=== PATIENT | female | born 1940 | race Caucasian/White ===

== ENCOUNTER 2017-05-11 07:36 | Emergency (ER) | payer MEDICARE ==
[~2017-05-11] VITALS: Ht 167.6 cm; Wt 87.0 kg
[~2017-05-11 07:36] MED LIST: ASPI325T PO; HYDR12.56 PO; IRBE150T49 PO; LEVO50TA51 PO; NITR0.4S SL; PROT40TA PO; [UNRECOGNIZED DRUG - OTHER]
[2017-05-11 07:40] VITALS: BP 170/84; PULSE 106; RESP 18; TEMP 98.9; O2SAT 95
[2017-05-11] MEDS ORDERED: ONDANSETRON HCL 4 MG/2 ML VIAL IV PUSH ONE (08:00)
[2017-05-11] MEDS ORDERED: SODIUM CHLORID 0.9% 500 ML INJ 500 ML IV ONE (08:00)
[2017-05-11] MEDS ORDERED: MORPHINE SULFATE 4 MG/ML INJ IV PUSH ONE (08:00)
[2017-05-11] MEDS ORDERED: LEVO88TA2 PO (08:03)
[2017-05-11] MEDS ORDERED: IRBE300T11 PO (08:03)
[2017-05-11] MEDS ORDERED: AZAT50 PO (08:03)
--- NOTE | 2017-05-11 08:25 | RADRPT ---
EXAM DATE/TIME: 05/11/2017 08:04 [facility] COMPARISON: CHEST SINGLE AP, January 20, 2014, 7:51. INDICATIONS : Chest pain, nausea, vomiting MEDICAL HISTORY : Myocardial infarction. SURGICAL HISTORY : None. ENCOUNTER: Initial ACUITY: 1 week PAIN SCORE: 6/10 LOCATION: Bilateral chest FINDINGS: The heart is normal in size. The lungs demonstrate diffuse, nonspecific interstitial infiltrate predo minantly in the lung bases. No areas of consolidation are seen. No pleural effusion is present. No fo bambi mass is seen. The osseous structures demonstrate degenerative changes in the a.c. joints and thoracic spine but are otherwise intact. CONCLUSION: 1. Diffuse bibasilar interstitial prominence new from previous of 01/20/14. This is nonspecific in danny earance. No areas of consolidation are identified. Glenn Berger MD on May 11, 2017 at 8:22 Board Certified Radiologist. This report was verified electronically.
[2017-05-11 08:28] LABS: BASOPHIL # 0.3 TH/MM3 (0-0.2); BASOPHIL % 2.9 % (0.0-2.0); EOSINOPHIL # 0.1 TH/MM3 (0-0.4); EOSINOPHIL % 1.1 % (0.0-4.0); LYMPH % 5.9 % (9.0-44.0); LYMPHOCYTE # 0.6 TH/MM3 (1.0-4.8); MEAN CELL VOLUME 91.9 FL (80.0-100.0); MEAN CORPUSCULAR HEMOGLOBIN 30.8 PG (27.0-34.0); MEAN CORPUSCULAR HGB CONC 33.6 % (32.0-36.0); MONO % 7.1 % (0.0-8.0); PLATELET COUNT 175 TH/MM3 (150-450); RED BLOOD COUNT 4.57 MIL/MM3 (4.00-5.30); RED CELL DISTRIBUTION WIDTH 12.3 % (11.6-17.2); WHITE BLOOD COUNT 9.7 TH/MM3 (4.0-11.0)
[2017-05-11 08:35] LABS: CHLORIDE 105 MEQ/L (98-107); POTASSIUM 3.9 MEQ/L (3.5-5.1); SODIUM (NA) 136 MEQ/L (136-145)
[2017-05-11 08:39] LABS: ANION GAP 8 MEQ/L (5-15); BICARBONATE 22.8 MEQ/L (21.0-32.0); BLOOD UREA NITROGEN 17 MG/DL (7-18)
[2017-05-11 08:42] LABS: ALT (GPT) 33 U/L (10-53); AST (GOT) 28 U/L (15-37); GLOMERULAR FILTRATION RATE 59 ML/MIN (>89)
[2017-05-11 08:44] VITALS: BP 146/65; PULSE 90; RESP 18; O2SAT 95
[2017-05-11 08:44] LABS: TOTAL BILIRUBIN ADULT 0.7 MG/DL (0.2-1.0)
[2017-05-11 08:45] LABS: ALKALINE PHOSPHATASE 137 U/L (45-117)
[2017-05-11 08:49] LABS: HEMO FLAGS DIFF FINAL
[2017-05-11 09:19] LABS: CREATINE KINASE 47 U/L (26-192)
[2017-05-11 09:24] VITALS: BP 146/65; PULSE 86; RESP 18; O2SAT 97
--- NOTE | 2017-05-11 10:12 | PD ---
HPI Chief Complaint: Pain: Acute or Chronic Time Seen by Provider: 07:45 Travel History International Travel<30 days: No Contact w/Intl Traveler<30days: No Traveled to known affect area: No History of Present Illness HPI Patient is a 76 year old female, with history of vasculitis, who comes in complaining of pain with nausea. She says her medication was switched 3 weeks ago, and she thinks it makes her nauseous. She has not vomited. She says she has pains to her legs, but these are chronic. She also says she has pain to her lower abdomen, which is new. She says she has not vomited. She denies fever or chills. She follows with a quality assurance director. She denies any chest pain. She says she has chronic SOB due to COPD and this has not changed. PFSH Past Medical History Arthritis: No Asthma: No Autoimmune Disease: No Blood Disorders: No Anxiety: No Depression: No Heart Rhythm Problems: No Cancer: No Cardiac Catheterization: Yes Cardiovascular Problems: Yes High Cholesterol: Yes Chemotherapy: No Chest Pain: Yes Congestive Heart Failure: No COPD: No Cerebrovascular Accident: No Coronary Artery Disease: Yes Diabetes: No Diminished Hearing: No Endocrine: Yes Gastrointestinal Disorders: Yes GERD: Yes Glaucoma: No Genitourinary: Yes Headaches: No Hepatitis: No Hiatal Hernia: No Hypertension: Yes Immune Disorder: No Kidney Stones: No Musculoskeletal: No Neurologic: Yes Psychiatric: No Reproductive: No Respiratory: No Migraines: No Myocardial Infarction: Yes (APR 21, 2010) Radiation Therapy: No Renal Failure: No Seizures: No Sickle Cell Disease: No Sleep Apnea: Yes (NO CPAP USED. ) Thyroid Disease: Yes Ulcer: No Influenza Vaccination: Yes ?: Not Menopausal: Yes Past Surgical History Abdominal Surgery: Yes AICD: No Appendectomy: No Arteriovenous Shunt: No Cardiac Surgery: No Cholecystectomy: Yes Coronary Stent: Yes (X2) Ear Surgery: No Endocrine Surgery: No Eye Surgery: No Genitourinary Surgery: No Gynecologic Surgery: No Insulin Pump: No Joint Replacement: No Oral Surgery: No Pacemaker: No Thoracic Surgery: No Tonsillectomy: Yes Other Surgery: Yes (gallbladder and tonsils removed) Social History Alcohol Use: No Tobacco Use: No Substance Use: No Allergies-Medications (Allergen,Severity, Reaction): Coded Allergies: atorvastatin (Unverified Allergy, Severe, Hives, 05/11/17) oyster extract (Unverified Allergy, Severe, VOMITING, 05/11/17) lovastatin (Unverified Allergy, Intermediate, ELEVATES LIVER ENZYMES, 05/11) acebutolol (Unverified Allergy, Unknown, unknown , 05/11/17) per pt had problems with beta blockers, doesnt know what kind atenolol (Unverified Allergy, Unknown, unknown , 05/11/17) per pt had problems with beta blockers, doesnt know what kind betaxolol (Unverified Allergy, Unknown, unknown , 05/11/17) per pt had problems with beta blockers, doesnt know what kind carvedilol (Unverified Allergy, Unknown, unknown , 05/11/17) per pt had problems with beta blockers, doesnt know what kind labetalol (Unverified Allergy, Unknown, unknown , 05/11/17) per pt had problems with beta blockers, doesnt know what kind metoprolol (Unverified Allergy, Unknown, unknown , 05/11/17) per pt had problems with beta blockers, doesnt know what kind nebivolol (Unverified Allergy, Unknown, unknown , 03/19/17) per pt had problems with beta blockers, doesnt know what kind pindolol (Unverified Allergy, Unknown, unknown , 05/11/17) per pt had problems with beta blockers, doesnt know what kind propranolol (Unverified Allergy, Unknown, unknown , 05/11/17) per pt had problems with beta blockers, doesnt know what kind sotalol (Unverified Allergy, Unknown, unknown , 05/11/17) per pt had problems with beta blockers, doesnt know what kind timolol (Unverified Allergy, Unknown, unknown , 05/11/17) per pt had problems with beta blockers, doesnt know what kind Reported Meds & Prescriptions Reported Meds & Active Scripts Active Reported Levothyroxine (Levothyroxine Sodium) 88 Mcg Tab 88 Mcg PO DAILY Azathioprine 50 Mg Tab 50 Mg PO DAILY Hazardous agent use appropriate precautions for handling and disposal. Irbesartan 300 Mg Tab 300 Mg PO DAILY Review of Systems Except as stated in HPI: all other systems reviewed are Neg General / Constitutional: No: Fever, Chills Eyes: No: Blurred Vision HENT: No: Headaches, Lightheadedness Cardiovascular: No: Chest Pain or Discomfort Respiratory: Positive: Shortness of Breath Gastrointestinal: Positive: Nausea, Diarrhea, Abdominal Pain, No: Vomiting Genitourinary: No: Dysuria Musculoskeletal: No: Myalgias, Edema Skin: No Rash, No Change in Pigmentation Neurologic: No: Weakness, Dizziness Physical Exam Narrative GENERAL: Awake and alert, in no acute distress. SKIN: Focused skin assessment warm/dry. HEAD: Atraumatic. Normocephalic. EYES: Pupils equal and round. No scleral icterus. EOMI ENT: No nasal bleeding or discharge. Mucous membranes pink and moist. NECK: Trachea midline. No JVD. CARDIOVASCULAR: Regular rate and rhythm. No murmur appreciated. RESPIRATORY: No accessory muscle use. Clear to auscultation. Breath sounds equal bilaterally. GASTROINTESTINAL: Abdomen soft, non-tender, nondistended. MUSCULOSKELETAL: No obvious deformities. No clubbing. No cyanosis. No edema. NEUROLOGICAL: Awake and alert. No obvious cranial nerve deficits. Motor grossly within normal limits. Normal speech. PSYCHIATRIC: Appropriate mood and affect; insight and judgment normal. Data Data Last Documented VS Vital Signs Date Time Temp Pulse Resp B/P (MAP) Pulse Ox O2 Delivery O2 Flow Rate FiO2 05/11/17 11:16 93 18 144/80 (101) 95 Room Air 05/11/17 07:40 98.9 Orders Orders Iv Access Insert/Monitor (05/11/17 07:52) Complete Blood Count With Diff (05/11/17 07:52) Comprehensive Metabolic Panel (05/11/17 07:52) Troponin I (05/11/17 07:52) Ckmb (Isoenzyme) Profile (05/11/17 07:52) Urinalysis - C+S If Indicated (05/11/17 07:52) Chest, Single Ap (05/11/17 ) Electrocardiogram (05/11/17 ) Lactic Acid (05/11/17 07:52) Sodium Chlorid 0.9% 500 Ml Inj (Ns 500 M (05/11/17 08:00) Ondansetron Inj (Zofran Inj) (05/11/17 08:00) Morphine Inj (Morphine Inj) (05/11/17 08:00) Famotidine Inj (Pepcid Inj) (05/11/17 10:15) Metoclopramide Inj (Reglan Inj) (05/11/17 10:15) Ct Abd/Pel W Iv Contrast(Rout) (05/11/17 ) Oxycodone-Acetamin 5-325 Mg (Percocet (05/11/17 11:00) Methylprednisolone So Succ Inj (Solumedr (05/11/17 11:00) Iohexol 350 Inj (Omnipaque 350 Inj) (05/11/17 11:00) Labs Laboratory Tests Test 05/11/17 08:20 White Blood Count 9.7 TH/MM3 Red Blood Count 4.57 MIL/MM3 Hemoglobin 14.1 GM/DL Hematocrit 42.0 % Mean Corpuscular Volume 91.9 FL Mean Corpuscular Hemoglobin 30.8 PG Mean Corpuscular Hemoglobin Concent 33.6 % Red Cell Distribution Width 12.3 % Platelet Count 175 TH/MM3 Mean Platelet Volume 9.3 FL Neutrophils (%) (Auto) 83.0 % Lymphocytes (%) (Auto) 5.9 % Monocytes (%) (Auto) 7.1 % Eosinophils (%) (Auto) 1.1 % Basophils (%) (Auto) 2.9 % Neutrophils # (Auto) 8.0 TH/MM3 Lymphocytes # (Auto) 0.6 TH/MM3 Monocytes # (Auto) 0.7 TH/MM3 Eosinophils # (Auto) 0.1 TH/MM3 Basophils # (Auto) 0.3 TH/MM3 CBC Comment DIFF FINAL Differential Comment Blood Urea Nitrogen 17 MG/DL Creatinine 0.93 MG/DL Random Glucose 115 MG/DL Total Protein 7.6 GM/DL Albumin 3.6 GM/DL Calcium Level 8.9 MG/DL Alkaline Phosphatase 137 U/L Aspartate Amino Transf (AST/SGOT) 28 U/L Alanine Aminotransferase (ALT/SGPT) 33 U/L Total Bilirubin 0.7 MG/DL Sodium Level 136 MEQ/L Potassium Level 3.9 MEQ/L Chloride Level 105 MEQ/L Carbon Dioxide Level 22.8 MEQ/L Anion Gap 8 MEQ/L Estimat Glomerular Filtration Rate 59 ML/MIN Lactic Acid Level 1.2 mmol/L Total Creatine Kinase 47 U/L Troponin I LESS THAN 0.02 NG/ML MDM Medical Decision Making Medical Screen Exam Complete: Yes Emergency Medical Condition: Yes Medical Record Reviewed: Yes Interpretation(s) ECG shows sinus tach at 100, no ST elevation or depression, normal intervals Differential Diagnosis Gastritis versus gastroenteritis versus exacerbation of vasculitis Narrative Course Patient is a 76-year-old female comes in complaining of pain to her legs, which is chronic as well as abdominal pain with nausea and diarrhea. Exam shows abdomen is soft and nontender. IV established, labs sent. Labs show no acute abnormalities. She was given IV fluids, Zofran, morphine. CT abdomen and pelvis performed shows no acute abnormalities. Last 24 hours Impressions Chest X-Ray 05/11/17 0000 Signed Impressions: Service Date/Time: Thursday, May 11, 2017 08:04 - CONCLUSION: 1. Diffuse bibasilar interstitial prominence new from previous of 01/20/14. This is nonspecific in appearance. No areas of consolidation are identified. Glenn Berger MD Abdomen/Pelvis CT 05/11/17 0000 Signed Impressions: Service Date/Time: Thursday, May 11, 2017 11:02 - CONCLUSION: 1. No findings to indicate bowel obstruction identified. No free air or free fluid is present. 2. There is a small ventral hernia just above the level the umbilicus. There is a loop of small bowel within this. This is unchanged from previous. 3. There is a moderate size ventral hernia below the level of the umbilicus as well. There is a loop of small bowel within this. This is stable compared to previous. 4. Degenerative changes in the spine and hips. Glenn Berger MD She says the morphine helped, but then she started to have an epigastric pain, so she was given famotidine as well as a Percocet. She reports feeling better. Given a dose of Solu-Medrol. She'll be discharged with prescriptions for pain medicine as well as prednisone for a few days. She is advised to follow- up with her quality assurance director on Saturday. She is comfortable with discharge at this time. Diagnosis Primary Impression: Abdominal pain Qualified Codes: R10.13 - Epigastric pain Patient Instructions: Abdominal Pain (ED), General Instructions Additional Instructions: Start prednisone tomorrow as she had a dose today. Take pain medicine as needed. Follow-up with your doctor on Saturday. Return to the ED as needed for any worsening symptoms. Scripts Hydrocodone-Acetaminophen (Lortab) 5-325 Mg Tab 1 TAB PO Q6H Y for PAIN, #10 TAB 0 Refills Prov: Sarah Lewis MD 05/11/17 Prednisone (Prednisone) 50 Mg Tab 50 MG PO DAILY for 4 Days, #4 TAB 0 Refills Prov: Sarah Lewis MD 05/11/17 Disposition: 01 DISCHARGE HOME Condition: Stable Sarah Lewis MD May 11, 2017 10:12
[2017-05-11] MEDS ORDERED: FAMOTIDINE 20 MG/2 ML VIAL IV PUSH ONE (10:15)
[2017-05-11] MEDS ORDERED: METOCLOPRAMIDE INJ 10 MG in SODIUM CHLORIDE 0.9% INJ 50 ML IV ONE (10:15)
[2017-05-11 10:33] VITALS: BP 144/64; PULSE 86; RESP 18; O2SAT 95
[2017-05-11] MEDS ORDERED: IOHEXOL 350 MG/ML 10 ML VIAL (for RAD DIAG) IVCONTRAST ONE (11:00)
[2017-05-11] MEDS ORDERED: oxyCODONE/ACETAMINOPHEN 5 MG/325 MG TAB PO ONE (11:00)
[2017-05-11] MEDS ORDERED: methylPREDNISolone SOD SUCC 125 MG/2 ML VIAL IV PUSH ONE (11:00)
[2017-05-11 11:16] VITALS: BP 144/80; PULSE 93; RESP 18; O2SAT 95
--- NOTE | 2017-05-11 11:27 | RADRPT ---
EXAM DATE/TIME: 05/11/2017 11:02 [facility] COMPARISON: CT ABDOMEN & PELVIS W CONTRAST, January 20, 2014, 11:36. INDICATIONS : Abdominal pain. Nausea, vomiting. IV CONTRAST: 96 cc Omnipaque 350 (iohexol) IV ORAL CONTRAST: No oral contrast ingested. RADIATION DOSE: 18.45 CTDIvol (mGy) MEDICAL HISTORY : Hypercholesterolemia. Hypertension. CAD,OK SURGICAL HISTORY : Cholecystectomy. Stents ENCOUNTER: Initial ACUITY: 1 day PAIN SCALE: 8/10 LOCATION: Bilateral abdominal TECHNIQUE: Volumetric scanning of the abdomen and pelvis was performed. Using automated exposure control and ad justment of the mA and/or kV according to patient size, radiation dose was kept as low as reasonably achievable to obtain optimal diagnostic quality images. DICOM format image data is available electro nically for review and comparison. FINDINGS: The limited portion of the lung base visualized is clear. The appearance of the liver, spleen, pancreas, adrenal glands and kidneys is within normal limits. Th e patient is post cholecystectomy. There is no free intraperitoneal air. No free intraperitoneal fluid is identified. There is no retrop eritoneal lymphadenopathy. The aorta is normal in caliber. The visualized loops of small and large bowel in the upper abdomen are unremarkable. Note is made of a small ventral hernia just above the level the umbilicus. Note is also made of a wid e neck ventral hernia in the low anterior, wall as well. There is no free fluid within the pelvis. No iliac or inguinal adenopathy is seen. The visualized bony structures demonstrate degenerative changes in the lumbar spine and the right hip . No acute fractures seen. CONCLUSION: 1. No findings to indicate bowel obstruction identified. No free air or free fluid is present. 2. There is a small ventral hernia just above the level the umbilicus. There is a loop of small bowel within this. This is unchanged from previous. 3. There is a moderate size ventral hernia below the level of the umbilicus as well. There is a loop of small bowel within this. This is stable compared to previous. 4. Degenerative changes in the spine and hips. Glenn Berger MD on May 11, 2017 at 11:22 Board Certified Radiologist. This report was verified electronically.
[2017-05-11] MEDS ORDERED: PRED50 PO (11:46)
[2017-05-11] MEDS ORDERED: HYDR-3533 PO (11:46)
--- NOTE | 2017-05-11 14:19 | EKG ---
Date Performed: 05/11/2017 Time Performed: 08:00:20 PTAGE: 76 years EKG: SINUS TACHYCARDIA BORDERLINE LEFT AXIS DEVIATION ABNORMAL RHYTHM ECG PREVIOUS TRACING : 01/21/2014 08.10 DOCTOR: Jersey Beck Interpretating Date/Time 05/11/2017 14:14:52
== END 2017-05-11 12:14 | disposition home or self-care (01) ==
LOC: PHED 07:36
DX: R10.13 Epigastric pain (principal); K43.9 Ventral hernia without obstruction or gangrene; R94.31 Abnormal electrocardiogram [ECG] [EKG]; I25.10 Atherosclerotic heart disease of native coronary artery without angina pectoris; I25.2 Old myocardial infarction
CPT/HCPCS: 71010; 74177; 80053; 82550; 83605; 84484; 85025; 93005; 96361; 96365; 96375; 99285; J2270; J2405; J2765; J2930; J7040; Q9967

== ENCOUNTER 2018-07-23 09:57 | Inpatient (IN) ==
[2018-07-23] MEDS ORDERED: Sodium Chlor 0.9% Inj 40 ML, Bupivacaine Liposo PF 1.3% Inj 20 ML P-ARTICULR ONE ×2 (10:26)
[2018-07-23] MEDS ORDERED: Dexamethasone Inj 20 MG/5 ML Vial IV.PUSH ONE (10:26)
[2018-07-23] MEDS ORDERED: Metoprolol Tartrate 25 MG Tablet PO ONE (10:30)
[2018-07-23] MEDS ORDERED: Chlorhexidine Gluconate 2% 1 Pack (2 Cloths) TOPICAL ONE (10:30)
[2018-07-23] MEDS ORDERED: Chlorhexidine 4% Topical 120 APPLIC/120 ML Bottle TOPICAL SCH (10:30)
[2018-07-23] MEDS ORDERED: Sodium Chlor 0.9% Inj 500 ML IV.CONT ONE (10:30)
[2018-07-23] MEDS ORDERED: ceFAZolin 2 GM Premix Inj 2 GM/50 ML PIGGYBACK IV.SIG SCH (11:00)
[2018-07-23] MEDS ORDERED: Vancomycin Inj 1,000 MG in Sodium Chlor 0.9% Inj 250 ML IV.SIG SCH (11:00)
[2018-07-23] MEDS ORDERED: Tranexamic Acid Inj 749 MG in Sodium Chlor 0.9% Inj 100 ML IV.SIG SCH ×2 (11:00→16:00)
[2018-07-23] MEDS ORDERED: Post-op Orders (for Pharmacy) OTHER STA (14:49)
[2018-07-23] MEDS ORDERED: Bisacodyl 10 MG Supp RECTAL PRN (14:49)
[2018-07-23] MEDS ORDERED: Aluminum/Magnesium/Simethacone Susp 30 ML UDC PO PRN (14:49)
[2018-07-23] MEDS ORDERED: Morphine Inj 4 MG/ML Vial IV.PUSH PRN (14:49)
--- NOTE | 2018-07-23 14:52 | P.OP ---
- Preoperative Diagnosis (1) Osteoarthritis of right hip - Postoperative Diagnosis (1) Osteoarthritis of right hip Date of procedure: 07/23/18 Procedure: Right total hip arthroplasty Anesthesia: GETA Surgeon: Yousuf Correa MD Info Specialist: NAOMY Dumont The surgical procedure was assisted by my Advanced Registered Nurse Practitioner. My REMOTE SENSING RESEARCH SCIENTIST presence was necessary throughout this case for the manipulation and positioning of the surgical extremity. My REMOTE SENSING RESEARCH SCIENTIST was assisting me throughout the duration of this procedure. The skill set of an Advance Registered Nurse Practitioner was medically necessary to complete this procedure. During the surgical case, the roving technician was working at the back table and the Advance Registered Nurse Practitioner was directly assisting me. Operation and Findings: IMPLANT DESCRIPTION (FluGenuy): 1. [place] Gription Cup, acetabular size 50. 2. [place] AltrX polyethylene, neutral. 4. [place] femoral stem size 11, no collar, standard offset. 5. Femoral head/neck metal, 32, +5. ESTIMATED BLOOD LOSS: 150 cc. JUSTIFICATION FOR PROCEDURE: The patient has end-stage osteoarthritis to the hip. There is an attached conservative measures pathway form in the chart that describes the nonoperative measures that were undertaken prior to consideration of surgical management. The patient understood the risks and benefits of surgical management. See my office notes for further details. PROCEDURE: The patient was brought back to the operative theatre. Adequate anesthesia was obtained. The patient received intravenous Ancef and vancomycin. The patient was carefully placed on the operative table. The lower extremity was prepped and draped in the usual sterile fashion. Fluoroscopic images were obtained. We made a standard anterior incision over the hip. We dissected through the TFL fascia, exposing the anterior capsule. Arthrotomy was performed in a T-shaped fashion. The capsule was tagged with a #2 FiberWire. End-stage arthritis was identified. Osteotomy was performed through the femoral neck exposing the acetabulum. Remnants of the labrum were resected and osteophytes were removed. We sequentially reamed the acetabulum. We trialed the hip and placed the final cup into position. This was done under fluoroscopic guidance to obtain the appropriate inclination and anteversion. A manhole cover was placed into the acetabular component. We then placed the final polyethylene into position and confirmed that it was well seated. Capsular attachments on the calcar and the inner aspect of the greater trochanter were resected. On the proximal aspect of the femur we used a rongeur , box osteotome, canal finder, sequential broaches and lateralizing rasp. We calcar planed the proximal femur. Then thoroughly irrigated the wound. We trialed the hip with the appropriate size stem. We placed the final stem in to position and trialed again. The hip was stable while it was externally rotated 70 degrees when the leg was lowered to the floor. The final head was applied, and final fluoroscopic images were obtained. The wound was thoroughly irrigated again. Interarticular injection of liposomal bupivacaine was given. The capsule was closed with #2 FiberWire and #1 Vicryl. The deep fascia was closed with a #2 Stratafix, followed by 2-0 Vicryl in the skin and Dermabond dressing. Postop plan is to weight-bear as tolerated. DVT prophylaxis will be performed with SCDs, BERTO hose, early mobilization, and aspirin.
--- NOTE | 2018-07-23 15:04 | XR ---
EXAM DATE: 07/23/2018 2:56 PM EST AGE/SEX: 77 years / Female INDICATIONS: Total right hip replacement. CLINICAL DATA: This is the patient's initial encounter. Patient reports that signs and symptoms have been present for 1 day and indicates a pain score of Nonresponsive. MEDICAL/SURGICAL HISTORY: Non-responsive. Non-responsive. COMPARISON: [facility], CT ABDOMEN & PELVIS W CONTRAST, 05/11/2017. . FINDINGS: The patient is status post right total hip arthroplasty with prosthesis in good position. CONCLUSION: Status post right total hip arthroplasty with prosthesis in good position. Electronically signed by: Christiano Tamayo MD Board Certified Radiologist 07/23/2018 3:02 PM EST
[2018-07-23] MEDS ORDERED: fentaNYL Citrate Inj 100 MCG/2 ML Ampul ONE (15:18)
[2018-07-23] MEDS ORDERED: *morphine SULFATE 10 MG/ML PERIprocedure ONLY ONE ×2 (15:34→15:51)
--- NOTE | 2018-07-23 15:49 | XR ---
EXAM DATE: 07/23/2018 3:38 PM EST AGE/SEX: 77 years / Female INDICATIONS: Status post op right total hip arthroplasty. CLINICAL DATA: This is the patient's initial encounter. Patient reports that signs and symptoms have been present for 1 day and indicates a pain score of 0/10. MEDICAL/SURGICAL HISTORY: None. None. [place] [facility] [place]. . FINDINGS: Multiple views of the right hip were obtained and demonstrate the patient is status post arthroplasty . The femoral and acetabular components are intact and in normal alignment. There is overlying soft t issue swelling and gas. CONCLUSION: Expected postoperative changes status post arthroplasty. Electronically signed by: Raghav Douglass MD Board Certified Radiologist 07/23/2018 3:48 PM EST
[2018-07-23] MEDS ORDERED: Sod Chloride 0.9% Inj 1,000 ML IV.CONT SCH (16:00)
[2018-07-23] MEDS ORDERED: *Ondansetron Inj 4 MG/2 ML Vial PERIprocedural Use ONLY ONE (16:27)
[2018-07-23] MEDS: ceFAZolin 1 GM Premix Inj 1 GM/50 ML PIGGYBACK IV.SIG SCH (18:10)
[2018-07-23] MEDS: Senna/Docusate Sodium 8.6/50 MG Tablet PO SCH (20:11)
[2018-07-23] MEDS: Multivitamin/Minerals Therapeutic Tablet PO SCH (20:11)
[2018-07-23] MEDS ORDERED: Zolpidem Tartrate 5 MG Tablet PO PRN (21:00)
[2018-07-24] MEDS: ceFAZolin 1 GM Premix Inj 1 GM/50 ML PIGGYBACK IV.SIG SCH ×2 (00:10→06:03)
[2018-07-24 05:13] LABS: Hematocrit 33.3 % (35.0-46.0); Hemoglobin 11.3 gm/dL (11.6-15.3)
[2018-07-24] MEDS ORDERED: Levothyroxine 88 MCG Tablet PO SCH (06:00)
--- NOTE | 2018-07-24 07:36 | P.PNOP ---
Subjective Interval history: The patient is resting comfortably in bed in no acute distress. The patient denies any hip pain. The patient states she does want to go home today. Physical Exam Vital signs: Vital Signs 07/23/18 10:45 07/23/18 15:15 07/23/18 15:30 Temperature 97.5 F L 97.5 F L Pulse Rate 80 76 56 L Respiratory Rate 16 16 16 Blood Pressure 187/79 H 144/70 H 152/67 H Pulse Oximetry 99 98 98 07/23/18 15:45 07/23/18 16:00 07/23/18 16:15 Temperature Pulse Rate 62 58 L 70 Respiratory Rate 16 16 16 Blood Pressure 121/58 L 125/58 L 134/60 Pulse Oximetry 98 97 96 07/23/18 16:30 07/23/18 17:00 07/23/18 18:00 Temperature Pulse Rate 86 74 70 Respiratory Rate 16 16 16 Blood Pressure 163/67 H 119/59 L 115/66 Pulse Oximetry 96 96 97 07/23/18 19:20 07/23/18 23:49 07/24/18 03:58 Temperature 97.2 F L 98.1 F 97.8 F Pulse Rate 84 61 71 Respiratory Rate 18 18 18 Blood Pressure 144/74 H 141/66 H 155/65 H Pulse Oximetry 97 98 97 Intake & Output 07/23/18 07/24/18 07/24/18 18:59 06:59 18:59 Intake Total 1807.49 / 1807.49 580 / 580 1050 / 1050 Output Total 150 / 150 Balance 1657.49 / 1657.49 580 / 580 1050 / 1050 Weight 74.9 kg 74.9 kg Intake: IV 1407.49 / 1407.49 100 / 100 1050 / 1050 LR 1000 mL Inj 1,000 ML @ 30 1000 / 1000 mls/hr IV.CONT .Q24H ONE Rx#: [id number] NS Inj 1,000 ML @ 80 mls/hr IV. 1000 / 1000 CONT .[id number] [facility] Rx#:[id number] Cyklokapron Inj 749 MG In NS 107.49 / 107.49 Inj 100 ML @ 200 mls/hr IV.SIG ONCE [facility] Rx#:[id number] Vancomycin Inj 1,000 MG In NS 250 / 250 Inj 250 ML @ 250 mls/hr IV.SIG DIRECTOR BROADCAST [facility] Rx#:[id number] Ancef 1 GM Premix Inj 1 gm In 100 / 100 50 / 50 50 ml @ 100 mls/hr IV.SIG Q6H [facility] Rx#:[id number] Ancef 2 GM Premix Inj 2 gm In 50 / 50 50 ml @ 100 mls/hr IV.SIG DIRECTOR BROADCAST [facility] Rx#:[id number] Oral 480 / 480 Anesthesia Amount 400 / 400 Output: Estimated Blood Loss 150 / 150 Other: # Voids 2 Date of Last Bowel Movement 07/23/18 # Bowel Movements 0 Weight On Admission 74.9 kg Narrative: The patient's dressing is clean, dry, and intact. EHL/TA/G are intact. 2+ pedal pulse. The patient's calf is soft and nontender. Sensation is intact to light touch distally. Results - Labs CBC & Chem 7: 07/24/18 04:27 Laboratory Results - last 24 hr 07/23/18 07/24/18 10:42 04:27 Hgb 11.3 L Hct 33.3 L Blood Type O Positive Blood Type Recheck Required Antibody Screen Negative - Imaging Impressions Hip X-Ray 07/23/18 00:00 CONCLUSION: Status post right total hip arthroplasty with prosthesis in good position. Hip X-Ray 07/23/18 14:48 CONCLUSION: Expected postoperative changes status post arthroplasty. - Procedures Right total hip arthroplasty Assessment and Plan - Assessment and Plan POD #1: [Right] total hip arthroplasty 1. Weightbearing as tolerated on [right] lower extremity. 2. Aspirin 81 mg twice daily for DVT prophylaxis. 3. Ice as needed for swelling. 4. Stable per ortho for discharge to home health today following her class. 5. The patient will follow up with Dr. Correa and/or NAOMY Hobson as previously scheduled.
[2018-07-24] MEDS ORDERED: Dexamethasone Inj 20 MG/5 ML Vial IV.PUSH ONE (08:00)
[2018-07-24 08:52] VITALS: TEMP 97.5
[2018-07-24] MEDS ORDERED: amLODIPine 5 MG Tablet PO SCH (09:00)
[2018-07-24] MEDS: Senna/Docusate Sodium 8.6/50 MG Tablet PO SCH (09:50)
[2018-07-24] MEDS: Multivitamin/Minerals Therapeutic Tablet PO SCH (09:50)
[2018-07-24 13:53] VITALS: BP 149/66; PULSE 87; RESP 18; O2SAT 94
--- NOTE | 2018-07-25 13:58 | P.DS ---
Date of admission: 07/23/18 09:57 Primary care physician: Leisa Primary Care Physician Attending physician on discharge: Yousuf Correa Anticipated date of discharge: 07/24/18 Brief History from admission: The patient was admitted to the hospital for severe osteoarthritis of the right hip to have a right total hip arthroplasty. DS: Summary Hospital Course: The patient was admitted to the hospital for severe osteoarthritis of the [right ] hip to have a [right] total hip arthroplasty. The patient's surgery went well with no complication. The patient is on a [regular] diet. The patient's DVT prophylaxis includes use of aspirin 81 mg twice daily. The patient is weightbearing as tolerated. The patient was discharged home with Renee for physical therapy and will follow up in the office with Dr. Correa and/or NAOMY Hobson as previously scheduled. - Time Spent with Patient Total time spent providing and/or coordinating discharge services: Greater than 30 minutes - Quality: VTE Deep Vein Thrombosis/Pulmonary Embolism Present on Admission: No Exam Vital signs: Intake & Output 07/24/18 07/25/18 07/25/18 18:59 06:59 18:59 Intake Total 1050 / 1050 Balance 1050 / 1050 Intake: IV 1050 / 1050 NS Inj 1,000 ML @ 80 mls/hr IV. 1000 / 1000 CONT .[id number] [facility] Rx#:[id number] Ancef 1 GM Premix Inj 1 gm In 50 / 50 50 ml @ 100 mls/hr IV.SIG Q6H [facility] Rx#:[id number] Other: Date of Last Bowel Movement 07/23/18 Narrative: The patient's dressing is clean, dry, and intact. EHL/TA/G are intact. 2+ pedal pulse. The patient's calf is soft and nontender. Sensation is intact to light touch distally. Results Procedures completed during hospitalization: Right total hip arthroplasty - Impressions ITS Impressions Hip X-Ray 07/23/18 14:48 CONCLUSION: Expected postoperative changes status post arthroplasty. Discharge Plan - Discharge Disposition Patient Disposition: 01 Discharge Home - Discharge Condition Condition: Stable - Discharge Order Discharge Orders: Discharge Order (Routine); Ordered 07/23/18 Ordered By: Glenn Angel - Discharge Details Anticipated Discharge Date: 07/24/18 - Physicians Team Primary Care Provider: Primary Care Swatii,Leisa Attending Provider: Yousuf Correa - Rxs /Orders / Referrals /Forms Prescriptions: Continue amlodipine 2.5 mg Tablet 2.5 mg PO DAILY irbesartan 300 mg Tablet 300 mg PO DAILY levothyroxine 88 mcg Tablet 88 mcg PO DAILY nitroglycerin [Nitrostat] 0.4 mg Tablet, Sublingual 0.4 mg SUBLINGUAL Q5-15M PRN (Reason: chest pain) Ambulatory Orders / Order Sets / DME: Adjustable Commode 3-in-1 (1 each) (Routine) Location: Determined by Patient Ordered By: Glenn Angel Walker With Front Wheels (1 each) (Routine) Location: Determined by Patient Ordered By: Glenn Angel Referrals: Yousuf Correa MD [Physician] - See Instructions (F/U in the office with Dr. Correa or Tomi Angel APRN as previously scheduled ) Primary Care Leisa Cabral [Primary Care Provider] - See Instructions - Discharge Instructions Patient Printed Instructions: How to Use an Incentive Spirometer (DC), Fall Prevention for Older Adults (DC), Precautions after Total Joint Replacement Surgery (DC), Total Hip Replacement (DC) Additional Instructions: Follow up with Dr Correa as instructed, notify him if your pain is not being controlled by your current pain medication. Do Not Change hip dressing, it will be changed in the office at your first appointment. You may shower, no Baths. Keep your dressing clean and dry. Follow all your hip precautions Continue using your incentive spirometer every hour, this will continue to help improve your lung function. Good luck in your recovery, Ity has been a pleasure taking care of you. Nena Vazquez & Happy New Year. - Post Discharge Care Plan Care Plan Goals: Discharge Care Plan Goals for Total Hip Replacement You had a hip replacement surgery. This means your natural hip was replaced with an artificial joint (prosthesis). You may be recovering at home or in a rehabilitation facility. Either way, you must take care of your new hip. Here are some goals to help you heal well. Directions to Meet your Goals: 1. Activity & Exercises: * Take pain medicine as directed by your doctor. * Dont drive until your doctor says its OK. And never drive while taking opioid pain medicine. * Wear the support stockings you were given in the hospital as directed by your surgeon. * Dont sit for more than 30 to 45 minutes at one time. * Dont lean forward while sitting. * Dont cross your legs. * Keep your feet flat on the floor. Dont turn your foot or leg inward. This stresses your hip joint. * Use an elevated toilet seat for 6 weeks after surgery. * Nap if you are tired, but dont stay in bed all day. * Sit on a firm cushion when you ride in a car and avoid sitting too low. Try not to bend your hip too much when getting in and out of the car. 2. Prevent Falls/Injury: * Follow your doctors orders regarding how much weight to put on the affected leg. * Dont bend at the hip when you bend over. Don't bend at the waist to put on socks and shoes. And avoid picking up items from the floor. * Use a cane, crutches, a walker, or handrails until your balance, flexibility, and strength improve. And remember to ask for help from others when you need it. * Free up your hands so that you can use them to keep balance. Use a petrona pack , apron, or pockets to carry things. * Arrange your household to keep the items you need handy. Keep everything else out of the way. * Remove items that may cause you to fall, such as throw rugs and electrical cords. * Use nonslip bath mats, grab bars, an elevated toilet seat, and a shower chair in your bathroom * Sit on a shower stool or chair when you shower to keep from falling. 3. Precautions: * Prevent infection. Any infection will need to be treated immediately. Call your doctor right away if you think you might have an infection. * Tell your dentist that you have an artificial joint and take antibiotics as prescribed before any dental work. * Tell all your healthcare providers about your artificial joint before any medical procedure. * Maintain a healthy weight. Get help to lose any extra pounds. Added body weight puts stress on the joints. 4. Incision Care: * Prevent infection by washing your hands often. If an infection occurs, it will need to be treated right away. * Call your doctor right away if you think you may have an infection. Symptoms include a fever or an incision that leaks white, green, or yellow fluid. * Don't soak your incision in water until your doctor says its OK. This means no hot tubs, bathtubs, or swimming pools. * Follow your doctor's instructions for changing the dressing. * Dont rub the incision, or apply creams or lotions to it. * If you notice any redness or drainage around the bandage site, contact your surgeon's office immediately. 5. Follow-Up: Do Not miss your follow-up appointment. Keep up with all your appointments and yearly check ups When to call your doctor: Call your doctor right away if you have: Hip pain gets worse Pain or swelling in your calf or leg not related to your incision Tenderness or redness in your calf Fever of 100.4F (38C) or higher, or as directed by your healthcare provider Shaking chills Swelling or redness at the incision site gets worse Fluid draining from the incision Call 911: Call 911 right away if you have: Chest pain Shortness of breath Any pain or tenderness in your calf
== END 2018-07-24 15:11 | disposition home or self-care (01) ==
LOC: HSDI 09:57 → N06 18:36
PROVIDERS: ADMIT Orthopaedic Surgery; ATTEND Orthopaedic Surgery